=== PATIENT | female | born 1980 | race Hispanic/Latino ===

== ENCOUNTER 2016-05-16 10:13 | Outpatient (CLI) | payer OTHER ==
[2016-05-16 11:39] LABS: Hematocrit 38.8 % (30.3-42.9); Hemoglobin 12.7 gm/dl (10.1-14.3); Mean Corpuscular Volume 78 fl (79-97); Red Blood Count 4.95 M/mm3 (3.65-5.03); White Blood Count 9.6 K/mm3 (4.5-11.0)
[2016-05-16 11:40] LABS: Basophils % (Auto) 0.7 % (0.0-1.8); Eosinophils % (Auto) 3.8 % (0.0-4.3); Mean Corpuscular HGB Conc 33 % (30-34); Mean Corpuscular Hemoglobin 26 pg (28-32); Mean Platelet Volume 7.9 fl (6-12); Platelet Count 312 K/mm3 (140-440); Red Cell Distribution Width 15.5 % (13.2-15.2)
[2016-05-16 11:45] LABS: Anion Gap 21 mmol/L; Carbon Dioxide 20 mmol/L (22-30); Chloride 103.1 mmol/L (98-107); Potassium 4.5 mmol/L (3.6-5.0); Sodium 140 mmol/L (137-145)
[2016-05-16 11:46] LABS: BUN/Creatinine Ratio 28.33; Blood Urea Nitrogen 17 mg/dL (7-17); Glucose 97 mg/dL (65-100)
[2016-05-16 11:47] LABS: Alanine Aminotransferase 21 units/L (7-56); Albumin 4.1 g/dL (3.9-5); Albumin/Globulin Ratio 1.4 %; Bilirubin,Total 0.2 mg/dL (0.1-1.2); Calcium 9.1 mg/dL (8.4-10.2); Cholesterol 149 mg/dL (50-199); HDL Cholesterol 41 mg/dL (40-59); LDL Cholesterol,Direct 43 mg/dL (50-130); Triglycerides 329 mg/dL (2-149)
[2016-05-16 11:48] LABS: Alkaline Phosphatase 54 units/L (35-129)
== END 2016-05-16 10:14 | disposition home or self-care (01) ==
LOC: LABHHL 10:13
PROVIDERS: ATTEND Specialist
DX: Z01.812 Encounter for preprocedural laboratory examination (principal); K30 Functional dyspepsia
CPT/HCPCS: 36415; 80053; 80061; 85025